=== PATIENT | female | born 1955 | race Asian ===

== ENCOUNTER 2020-05-15 06:52 | Day surgery (SDC) | payer BC, OTHER, SELFPAY ==
[~2020-05-15] VITALS: Ht 147.3 cm; Wt 59.0 kg
[2020-05-15] MEDS ORDERED: fentaNYL CITRATE/PF 100 MCG/2 ML AMP ONE (08:34)
[2020-05-15] MEDS ORDERED: MIDAZOLAM HCL 5 MG/5 ML VIAL ONE (08:34)
[2020-05-15] MEDS ORDERED: BENZOCAINE 20% 0.5mL UD SPRAY MM ONE (08:34)
[2020-05-15] MEDS ORDERED: SIMETHICONE 40 MG/0.6 ML ML ONE (08:34)
[2020-05-15 08:45] VITALS: BP_SYST 140
== END 2020-05-15 09:20 | disposition home or self-care (01) ==
LOC: SDS 06:52 → SMU 06:52 → SDS 09:20
PROVIDERS: ATTEND Internal Medicine
DX: Z12.11 Encounter for screening for malignant neoplasm of colon (principal); K21.00 Gastro-esophageal reflux disease with esophagitis, without bleeding; K29.50 Unspecified chronic gastritis without bleeding; E11.9 Type 2 diabetes mellitus without complications; Z86.010 Personal history of colon polyps; E78.00 Pure hypercholesterolemia, unspecified; I10 Essential (primary) hypertension; Z80.0 Family history of malignant neoplasm of digestive organs; Z80.3 Family history of malignant neoplasm of breast
CPT/HCPCS: 43239; 45378; 88305; 88312; 88313; G0378; J2250; J3010; U0003